=== PATIENT | female | born 1950 | race Caucasian/White ===

== ENCOUNTER 2022-08-19 08:05 | Outpatient (CLI) | payer MEDICARE, SELFPAY | END 2022-08-19 08:06 | disposition home or self-care (01) | LOC: INJ CL 08:06 | PROVIDERS: PCP Internal Medicine; Visit Provider Family Medicine | DX: M51.36 Other intervertebral disc degeneration, lumbar region (principal); M54.16 Radiculopathy, lumbar region | CPT/HCPCS: 62323; 85610; J0702; Q9966 ==

== ENCOUNTER 2022-10-28 09:15 | Outpatient (CLI) | payer MEDICARE, SELFPAY | END 2022-10-28 09:16 | disposition home or self-care (01) | LOC: INJ CL 09:16 | PROVIDERS: PCP Internal Medicine; Visit Provider Family Medicine | DX: M51.36 Other intervertebral disc degeneration, lumbar region (principal); M54.16 Radiculopathy, lumbar region | CPT/HCPCS: 62323; J0702; Q9966 ==